=== PATIENT | male | born 1980 | race Caucasian/White ===

== ENCOUNTER 2018-02-02 21:16 | Emergency (ER) | payer OTHER ==
[~2018-02-02] VITALS: Ht 170.2 cm; Wt 70.3 kg
[~2018-02-02 21:16] MED LIST: ACET325; CEPH500 PO; CLIN300 PO; CODACE30 PO; ESCI10; ESCI5; HYDACE10B; HYDACE5 PO; HYDACE5325 PO; HYDMOR2 PO; NAPR500 PO; NAPR550 PO; OXYACE5T PO; PENVK500 PO; Percocet 5-3251 EACH PO; RXHYD5325 PO; RXHYDACE PO; RXHYDMOR2 PO; RXNAPNA550 PO; RXOXYACE PO; RXPENVK250 PO; TRAM50 PO; Ultram50 MG PO
[2018-02-02] MEDS ORDERED: Augmentin 875-1 EACH PO (23:43)
== END 2018-02-03 00:20 | disposition home or self-care (01) ==
LOC: ER 21:16
DX: S01.451A Open bite of right cheek and temporomandibular area, initial encounter (principal); F17.210 Nicotine dependence, cigarettes, uncomplicated; W54.0XXA Bitten by dog, initial encounter
CPT/HCPCS: 12013; 99283

== ENCOUNTER 2018-08-13 14:41 | Observation (INO) | payer OTHER ==
[~2018-08-13] VITALS: Ht 170.2 cm; Wt 69.0 kg
[~2018-08-13 14:41] MED LIST changes: +Augmentin 875-1 EACH PO
[2018-08-13 15:09] LABS: BASOPHILS ABSOLUTE AUTO 0.06 K/mm3 (0.00-0.23); BASOPHILS PERCENT AUTO 1 % (0-2); EOSINOPHILS PERCENT AUTO 0 % (0-6); IMMATURE GRAN ABSOLUTE AUTO 0.05 K/mm3 (0.00-0.10); IMMATURE GRAN PERCENT AUTO 0 % (0-1); LYMPHOCYTES ABSOLUTE AUTO 0.98 K/mm3 (0.84-5.20); LYMPHOCYTES PERCENT AUTO 8 % (21-46); MONOCYTES ABSOLUTE AUTO 1.98 K/mm3 (0.16-1.47); MONOCYTES PERCENT AUTO 16 % (4-13); Mean Corpuscular HGB 31.3 pg (26.0-34.0); Mean Corpuscular HGB Conc 34.1 g/dL (31.5-36.5); Mean Corpuscular Volume 92 fL (80-100); Mean Platelet Volume 11.5 fL (9.1-12.4); NEUTROPHILS ABSOLUTE AUTO 9.35 K/mm3 (1.96-9.15); NEUTROPHILS PERCENT AUTO 75 % (41-73); Platelet Count 255 K/mm3 (150-400); RDW Coefficient Variation 11.7 % (11.7-14.2); RDW Standard Deviation 39.9 fL (35.1-46.3); Red Blood Cell Count 6.38 M/mm3 (4.30-5.90); White Blood Cell Count 12.42 K/mm3 (4.00-11.30)
[2018-08-13 15:12] LABS: Hematocrit 58.7 % (37.0-53.0)
[2018-08-13 15:32] LABS: Albumin, Blood 4.9 g/dL (3.4-5.0); Albumin/Globulin Ratio 1.1 (0.8-1.8); Bilirubin, Total 0.7 mg/dL (0.1-1.0); Bun/Creatinine Ratio 29.5 (12.0-20.0); Calcium, Blood 9.4 mg/dL (8.5-10.1); Creatinine, Blood 2.37 mg/dL (0.60-1.20); Globulin, Blood 4.6 g/dL (2.2-4.0); Potassium, Blood 4.5 mmol/L (3.5-5.5); Total Protein, Blood 9.5 g/dL (6.4-8.2)
[2018-08-13 16:01] LABS: Influenza A Negative (NEGATIVE); Influenza B Negative (NEGATIVE)
[2018-08-13] MEDS ORDERED: LOPE2C (16:24)
[2018-08-13] MEDS ORDERED: [UNRECOGNIZED DRUG - OTHER] PO (16:24)
[2018-08-14 00:11] LABS: Adenovirus F 40/41 Not Detected (NOT DETECT); Astrovirus Not Detected (NOT DETECT); Campylobacter Sp Not Detected (NOT DETECT); Cryptosporidium Not Detected (NOT DETECT); Cyclospora Cayetanensis Not Detected (NOT DETECT); E. Coli O157 Not Detected (NOT DETECT); Entamoeba Histolytica Not Detected (NOT DETECT); Enteroaggregative E. coli-EAEC Not Detected (NOT DETECT); Enteropathogenic E. coli-EPEC Not Detected (NOT DETECT); Enterotoxigenic E. coli-ETEC Not Detected (NOT DETECT); Giardia Lamblia Not Detected (NOT DETECT); Norovirus GI/GII Not Detected (NOT DETECT); Plesiomonas Shigelloides Not Detected (NOT DETECT); Rotavirus A Detected (NOT DETECT); Salmonella Sp Not Detected (NOT DETECT); Shiga Toxin-prod E. coli-STEC Not Detected (NOT DETECT); Shigella/Enteroin E. coli-EIEC Not Detected (NOT DETECT); Vibrio Cholerae Not Detected (NOT DETECT); Vibrio Sp Not Detected (NOT DETECT); Yersinia Enterocolitica Not Detected (NOT DETECT)
[2018-08-14 00:12] LABS: Sapovirus Not Detected (NOT DETECT)
[2018-08-14 05:56] LABS: Anion Gap 8 mmol/L (6-16); Blood Urea Nitrogen 44 mg/dL (8-24); Bun/Creatinine Ratio 39.3 (12.0-20.0); CO2, Blood 23 mmol/L (21-32); Calcium, Blood 8.2 mg/dL (8.5-10.1); Chloride, Blood 106 mmol/L (98-108); Creatinine, Blood 1.12 mg/dL (0.60-1.20); Glomerular Filtration Rate >60 (60-); Glucose, Blood 89 mg/dL (70-99); Potassium, Blood 3.8 mmol/L (3.5-5.5); Sodium, Blood 137 mmol/L (136-145)
--- NOTE | 2018-08-14 06:36 | NUR ---
SHIFT SUMMARY ADMITTED TO FLOOR LAST NIGHT DUE TO ZACH FROM N/V/D X3 DAYS & NOT BEING ABLE TO KEEP FLUIDS OR FOOD DOWN. STOOL SAMPLE SENT TO LAB LAST NIGHT & CAME BACK W/ROTAVIRUS WHICH PT REPORTED HIS GRANCHILDREN HAVE HAD, THEREFORE PLACED ON CONTACT PERCAUTIONS. PT REPORTS 7/10 BACK PAIN & HAS BEEN MEDICATED W/TYLENOL & FENTANYL PER ORDERS, ALONG W/KPAD HAS BEEN PLACED. PT HAD NO EMESIS T/O SHIFT & ONLY REPORTED NAUSEA AFTER LAB HAD DRAWN BLOOD, STATES HE GOT "WORKED UP A BIT" BECAUSE HE HAS A PHOBIA OF NEEDLES, WHICH MIGHT HAVE MADE HIM NAUSEOUS, MEDICATED 1X W/ZOFRAN. DENIES ABD TENDERNESS OR CRAMPING, HAS HYPERACTIVE BT, ONLY 1 EPISODE OF DIARRHEA T/O NIGHT. PT TOLERATED YOGURT, 1 SLICE OF PIZZA THAT SIGNIFICANT OTHER BROUGHT IN & WATER. CALL LIGHT IS IN REACH & I WILL CONTINUE TO MONITOR.
[2018-08-14] MEDS ORDERED: ACET325 PO (14:28)
[2018-08-14] MEDS ORDERED: LIDO700A20 TOP (14:29)
[2018-08-14] MEDS ORDERED: NICO21TP TOP (14:29)
[2018-08-14] MEDS ORDERED: ONDA4ODT MM (14:30)
[2018-08-14] MEDS ORDERED: OMEPRAZOLE20 MG PO (14:30)
--- NOTE | 2018-08-14 14:58 | NUR ---
REVIEW D'C W/PATIENT AND S.O. AWARE TO SCIENTOLOGIST RX'S AT [facility] IN [place]. AWARE TO MAKE F/U APPT AND GIVEN [facility] OR [facility] TO CALL. AWARE IF N/V TO TAKE MEDS AND WHEN FEELING BETTER TO START W/WATER SMALL SIPS AND THEN GRADUALLY ADVANCE. ANSWER ALL QUESTIONS. REFUSES W/C. STEADY GAIT WITH S.O. TO POV. GIVEN DOCTORS NOTE FOR WORK.
== END 2018-08-14 15:00 | disposition home or self-care (01) ==
LOC: ER 14:41 → MEDS 14:42 → ER 17:55 → MEDS 19:49
PROVIDERS: Physician Assistant; ADMIT Internal Medicine
DX: A08.0 Rotaviral enteritis (principal); N17.9 Acute kidney failure, unspecified; E87.1 Hypo-osmolality and hyponatremia; D72.829 Elevated white blood cell count, unspecified; M54.5 Low back pain; R19.7 Diarrhea, unspecified; F17.210 Nicotine dependence, cigarettes, uncomplicated
CPT/HCPCS: 36415; 76770; 80048; 80053; 83690; 85025; 87507; 87804; 94762; 96361; 96374; 96375; 99284-25; J2405; J3010; J7030

== ENCOUNTER 2024-05-15 14:35 | Emergency (ER) | payer OTHER ==
[~2024-05-15] VITALS: Ht 170.2 cm; Wt 68.0 kg
[~2024-05-15 14:35] MED LIST changes: +ACET325 PO; +LIDO700A20 TOP; +LOPE2C; +NICO21TP TOP; +OMEPRAZOLE20 MG PO; +ONDA4ODT MM; +[UNRECOGNIZED DRUG - OTHER] PO
[2024-05-15] MEDS ORDERED: FentaNYL Citrate 50 MCG/ML 2 ML Injection IV ONE ×3 (20:20→20:30)
[2024-05-15] MEDS ORDERED: Diazepam 5 MG / ML 2ML SYR IV ONE (20:25)
[2024-05-15] MEDS ORDERED: Midazolam HCl 1MG / ML 2ML Vial IV ONE (21:30)
[2024-05-15] MEDS ORDERED: RX Prepack 6 Tabs Oxycodone 5mg UD ONE (22:00)
[2024-05-15] MEDS ORDERED: CeFAZolin Sodium 2,000 MG in NS 100 ML IV ONE (22:05)
[2024-05-15] MEDS ORDERED: CEPH500 PO (22:07)
[2024-05-15 22:30] VITALS: BP 137/73
== END 2024-05-15 23:01 | disposition home or self-care (01) ==
LOC: ER 14:35
DX: S61.306A Unspecified open wound of right little finger with damage to nail, initial encounter (principal); V49.9XXA Car occupant (driver) (passenger) injured in unspecified traffic accident, initial encounter
CPT/HCPCS: 11012; 73140; 96365-59; 96375-59; 99283-25; A9270; J0690; J2250; J3010; J3360

== ENCOUNTER 2024-05-23 14:22 | Emergency (ER) | payer OTHER ==
[~2024-05-23] VITALS: Ht 170.2 cm; Wt 70.3 kg
[2024-05-23 14:46] VITALS: BP 125/63
[2024-05-23] MEDS ORDERED: Lidocaine/Tetracaine/Epinephr 3 ML GEL SYRINGE TOP ONE (15:00)
== END 2024-05-23 17:22 | disposition home or self-care (01) ==
LOC: ER 14:22
DX: Z48.02 Encounter for removal of sutures (principal); Z87.891 Personal history of nicotine dependence; Z79.899 Other long term (current) drug therapy
CPT/HCPCS: 99281